=== PATIENT | female | born 2000 | race Asian ===

== ENCOUNTER 2018-06-06 00:32 | Emergency (ER) | payer MEDICAID, OTHER ==
[2018-06-06 00:36] VITALS: BP 111/78
--- NOTE | 2018-06-06 01:23 | EDPHY ---
H & P Stated Complaint: URI symptoms and red eyes with drainage Time Seen by Provider: 06/06/18 01:01 HPI/ROS: Chief complaint: Pinkeye History of present illness: This is a 17-year-old female who presents to the emergency department concerned she has pinkeye. Over the last day she has noticed increasing redness in her eyes with watery discharge. No pain or itching. She has had URI symptoms for the last month primarily runny nose and nasal congestion as well as a slight nonproductive cough. No fevers, no chest congestion or trouble breathing, no rashes. She uses contacts but does not currently have them in. - Personal History LMP (Females 10-55): 1-7 Days Ago Current Tetanus/Diphtheria Vaccine: Yes Current Tetanus Diphtheria and Acellular Pertussis (TDAP): Yes - Medical/Surgical History Hx Asthma: No Hx Chronic Respiratory Disease: No Hx Diabetes: No Hx Cardiac Disease: No Hx Renal Disease: No Hx Cirrhosis: No Hx Alcoholism: No Hx HIV/AIDS: No Hx Splenectomy or Spleen Trauma: No Other PMH: denies - Social History Smoking Status: Never smoked - Physical Exam Exam: General Appearance: Alert and no distress. Eyes: Mild injection of the eyes bilaterally. Tearing. No pustular discharge. No hyphema. PERRLA ENT: Tympanic membranes, external auditory canals, external ears and surrounding soft tissue including over the mastoids are unremarkable. Nasopharynx is mildly injected. There is clear rhinorrhea. Oropharynx is not injected. There is no edema. There is no exudate. There is no asymmetry. The uvula is midline. No elevation of the tongue. There is no hoarseness, no drooling, no trismus, no stridor. Respiratory: Chest is nontender, lungs are clear to auscultation. Cardiac: regular rate and rhythm. Musculoskeletal: Neck is supple and nontender. Extremities have full range of motion and are nontender. Skin: No rashes or lesions. Constitutional: Initial Vital Signs Temperature (C) 36.7 C 06/06/18 00:32 Heart Rate 81 06/06/18 00:32 Respiratory Rate 16 10 00:32 Blood Pressure 111/78 06/06/18 00:32 O2 Sat (%) 97 06/06/18 00:32 O2 Delivery Mode Room Air Allergies/Adverse Reactions: No Known Allergies Allergy (Unverified 06/06/18 00:35) Home Medications: Medication Instructions Recorded NK [No Known Home Meds] 06/06/18 Medical Decision Making ED Course/Re-evaluation: Patient is seen under the supervision of my secondary supervising physician Dr. Shoaib Kilgore. Patient presents concerned she has pinkeye. She has had associated URI symptoms. I will start her on topical eye antibiotics for possible conjunctivitis. Symptomatic care including warm compresses is discussed. She is not to use contacts until 48 hours after all symptoms have resolved and she should throw the old pair away. This could be tear duct dysfunction from ongoing sinusitis. I have recommended Flonase and Claritin. She is to follow up with a primary care doctor for recheck. Strict return precautions are given. The patient voiced understanding and agreement with plan. Differential Diagnosis: Included but not limited to conjunctivitis, iritis, blepharitis, sinusitis, tear duct passage dysfunction, pharyngitis - Data Points Medications Given: Discontinued Medications Polymyxin/Trimethoprim Sulfate (Polytrim Opht Drops) 1 drops EACHEYE Q4HRS DON Stop: 07/06/18 01:59 Last Admin: 06/06/18 02:08 Dose: 1 drop Departure - Departure Disposition: Home, Routine, Self-Care Clinical Impression: URI (upper respiratory infection) Qualifiers: URI type: unspecified URI Qualified Code(s): J06.9 - Acute upper respiratory infection, unspecified Conjunctivitis Qualifiers: Conjunctivitis type: unspecified Laterality: bilateral Qualified Code(s): H10.9 - Unspecified conjunctivitis Condition: Good Instructions: Upper Respiratory Infection (ED), Conjunctivitis (ED) Additional Instructions: Follow-up with [facility] on Friday for recheck without fail Use the eye antibiotic every 4 hr for the next 7 days I recommend you use Flonase 2 sprays each nostril daily I recommend you take Claritin 10 mg once daily Apply warm compresses to your eyes multiple times daily Do not wear contacts until 48 hr after all eye symptoms have resolved. Throw away old used contacts. Keep a humidifier in her room If symptoms worsen or new symptoms develop return to the emergency department for recheck Referrals: NONE *PRIMARY CARE P,. [Primary Care Provider] - As per Instructions [facility],. [Clinic] - As per Instructions
[2018-06-06] MEDS ORDERED: POLYMYXIN B SULFATE/TMP 10 ML OPHT.BTL EACHEYE SCH (02:00)
== END 2018-06-06 02:10 | disposition home or self-care (01) ==
DX: J06.9 Acute upper respiratory infection, unspecified (principal); H10.33 Unspecified acute conjunctivitis, bilateral